=== PATIENT | male | born 1975 | race Two or more races ===

== ENCOUNTER 2021-05-27 15:09 | Emergency (ER) | payer SELFPAY ==
[~2021-05-27] VITALS: Ht 185.4 cm; Wt 83.9 kg
--- NOTE | 2021-05-27 16:37 | NUR ---
PT WAS EVALUATED BY DR GARNICA. PT WAS D/C'd TO HOME D/C INSTRUCTIONS GIVEN TO THE PT BY DR GARNICA.
[2021-05-27 16:38] VITALS: BP 142/77
== END 2021-05-27 16:38 | disposition home or self-care (01) ==
LOC: ER 15:21
DX: K42.9 Umbilical hernia without obstruction or gangrene (principal)
CPT/HCPCS: A4663